=== PATIENT | male | born 1960 | race Caucasian/White ===

== ENCOUNTER 2022-06-30 09:55 | Emergency (ER) | payer MEDICAID ==
[~2022-06-30] VITALS: Ht 182.9 cm; Wt 81.8 kg
[2022-06-30 10:01] VITALS: TEMP 96.1
[2022-06-30 10:35] LABS: ARTERIAL BLD GAS O2 SATURATION 98.4 % (92-100); ARTERIAL BLD GAS TCO2 CT 16.9; ARTERIAL BLOOD GAS BASE EXCESS -8.8 (-2-2); ARTERIAL BLOOD GAS PCO2 30.6 mmHg (35-45); ARTERIAL BLOOD GAS PO2 134.8 mmHg (80-100); ARTERIAL BLOOD GAS pH 7.34 (7.35-7.45)
[2022-06-30 10:59] LABS: BASO % 0.3 % (0.0-2.0); GRAN # 3.4 K/mm3 (1.4-6.5); GRAN % 89.3 % (42.2-75.2); LYMPH # 0.3 K/mm3 (1.2-3.4); LYMPH % 6.5 % (20.0-51.0); MEAN CELL VOLUME 106 fl (80.0-100.0); MEAN CORPUSCULAR HGB CONC 35 g/dl (33.0-37.0); MEAN PLATELET VOLUME 12.1 fl (7.4-10.4); MONO # 0.1 K/mm3 (0.1-0.6); MONO % 2.6 % (1.7-9.3); PLATELET COUNT 124 K/mm3 (130-400); RED BLOOD COUNT 2.37 M/mm3 (4.20-5.60); REDCELL DISTRIBUTION WIDTH-CV 14.2 % (11.5-14.5)
[2022-06-30 11:00] LABS: HEMOGLOBIN 8.7 g/dl (13.5-18.0); MEAN CORPUSCULAR HEMOGLOBIN 37 pg (27-31)
[2022-06-30 11:13] LABS: ALBUMIN 2.9 gm/dL (3.4-4.8); BILIRUBIN,TOTAL 0.8 mg/dL (0.2-1.2); CALCIUM 8.8 mg/dL (8.4-10.2); CREATININE, serum 2.09 mg/dL (0.72-1.25); POTASSIUM 3.7 mmol/L (3.5-4.5); TOTAL PROTEIN 6.4 gm/dL (6.2-8.1)
[2022-06-30 11:22] LABS: INR 1.5 (0.8-3.0); PROTHROMBIN TIME 17.7 SECONDS (9.7-12.8)
[2022-06-30 11:25] LABS: PARTIAL THROMBOPLASTIN TIME 45.7 SECONDS (26.0-37.0)
[2022-06-30 11:30] VITALS: BP 123/86; PULSE 63
[2022-06-30 11:40] LABS: TROPONIN-I 63.902 ng/mL (0.00-0.033)
--- NOTE | 2022-06-30 11:45 | NUR ---
production line worker contacted patient's brother, Brett #[phone] and also met with brother Sangeeta at the hospital. Patient is now intubated. Brother's confirm that patient is not and does not have any children. Brothers, Brett and Sangeeta are patient's legal next of kin. Patient will be life flighted to [facility] and brother's are aware. Supervisor [employer] present with brother Sangeeta as well.
== END 2022-06-30 12:00 | disposition short-term general hospital (02) ==
LOC: COL.ER 09:55
PROVIDERS: Personal Emergency Response Attendant; Physician Assistant
DX: I46.9 Cardiac arrest, cause unspecified (principal); N17.9 Acute kidney failure, unspecified; I21.4 Non-ST elevation (NSTEMI) myocardial infarction; J81.1 Chronic pulmonary edema
CPT/HCPCS: C1751; J2704; J7060